=== PATIENT | male | born 1955 | race Two or more races ===

== ENCOUNTER 2024-05-20 08:48 | Outpatient (RCR) | payer MEDICARE, SELFPAY ==
--- NOTE | 2024-05-26 08:52 | CTCCONSULT_ITS ---
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 Patient has been treated with multiple drugs. Patient has progressed on back, Sunitinib. Regorafenib and Gleevac. Patient is on ripretinib and has been tolerating well. Patient have epistaxis which was intermittent. Patient recently had a scan and was advised that his disease is still. Last scan as per patient was about 1 year ago 1 year. Was not doing imaging as he has high co-pay. 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 Tobacco?Use:?Denies ETOH?Use:?Socially Drug?Note:?Denies Social?History?Note:?Lives?with? MEDICATIONS: 1. albuterol sulfate - 90 mcg/actuation As directed 2. celecoxib - 200 mg 1 Capsule Every 12 Hours 3. lisinopril - 5 mg 1 tab Daily 4. ripretinib - 50 mg 3 tab Daily Medications Last Reconciled by Amaris Le RN on 05/20/2024 ALLERGIES: No Known Drug Allergies REVIEW OF SYSTEMS: A complete 14-point review of systems was performed and is negative except as noted in interval history. PHYSICAL EXAMINATION: VITAL SIGNS: Temperature?98, B/P?155/89, Height?67?inches, Oxygen?Saturation?94% Weight?206?lbs PAIN: 4 - Moderate pain ECOG Performance Status: 0 - Asymptomatic and fully active GENERAL APPEARANCE: Appears well, in no apparent distress, appropriately interactive. HEENT: Normocephalic, no temporal wasting, normal conjunctiva, no scleral icterus, normal hearing, lips without lesions, neck normal range of motion. CARDIOVASCULAR: Not assessed. PULMONARY: Normal respiratory effort, no respiratory distress or use of accessory muscles, speaking in full sentences, no tachypnea. EXTREMITIES: No pedal edema or cyanosis. SKIN: Normal skin appearance. NEUROLOGIC: Alert and oriented x4. PSHYCHIATRIC: Appropriate affect, mood normal, behavior normal, intact thought and speech. LABORATORY DATA: I have personally reviewed and interpreted each of the patient?s relevant lab tests, abnormal findings are below: Date ECHO -60-65 percent ASSESSMENT/PLAN: GIST tumor Progressed on imatinib ,regorafinib and sutent Now on ripertinib and stable He needs staging imaging to see burden of disease and response to treatment High PDL1 PET CT SCAN CBC,CMP RETURN TO CLINIC: 4 WEEKS BILLING AND COMPLIANCE: I reviewed external records from providers outside my specialty as summarized above. I spent a total of 50 minutes on this patient?s care on the day of their visit excluding time spent related to any billed procedures. This time includes time spent with the patient as well as time spent documenting in the medical record, reviewing patients records and tests, obtaining history, placing orders, communicating with other healthcare professionals, counseling the patient, family or caregiver, and/or care coordination for the diagnoses above. Electronically Signed by: Salvatore Julien MD T: 8:49 AM CC: PCP: Ji Tolliver Referring: Ji Tolliver This document was completed utilizing speech recognition software. Grammatical errors, random word insertions, pronoun errors, and incomplete sentences are an occasional consequence of this system due to software limitations, ambient noise, and hardware issues. Any formal questions or concerns about the content, text or information contained within the body of this dictation should be directly addressed to the provider for clarification.
== END 2024-05-23 23:59 | disposition home or self-care (01) ==
LOC: SCTC 08:48
PROVIDERS: PCP Family Medicine; Referring Provider Family Medicine; Visit Provider Internal Medicine Hematology & Oncology
DX: C49.A0 Gastrointestinal stromal tumor, unspecified site (principal)
CPT/HCPCS: 99213; G0463

== ENCOUNTER → 2024-06-10 | Outpatient (CLI) | payer MEDICARE, SELFPAY ==
--- NOTE | 2024-06-10 10:15 | XR_ITS ---
EXAMINATION: PET/CT FUSION SKULL TO THIGH EXAM DATE AND TIME: June 10, 2024 at 1043 hours Compared to outside PET/CT scan October 17, 2023 INDICATIONS: Hypermetabolic liver lesions segment 7 5.0 x 3.8 cm, anterior pelvic Cystic solid mass with peripheral areas of solid FDG uptake, 8.9 x 7.3 cm, multiple soft tissue deposits in the left side of the abdomen left posterior abdomen 15 mm, anterior to the the descending colon 9 mm, diagnosis gastrointestinal cancer restaging post treatment CTDI:vol (mGy) 8.01 DLP: (mGycm) 831.63 PROCEDURE: 16.3 mCi FDG was administered intravenously To allow for distribution and uptake of radiotracer, the patient was allowed to rest quietly in a shielded room. Imaging was performed on an integrated 16-slice PET/CT scanner, with scanning from the skull base to the mid thigh. Serum blood glucose at the time of the injection was measured 100 mg/dL. CT scanning was performed without oral or intravenous contrast material. FINDINGS: Head and Neck: There is no tristen hypermetabolism in the neck. The visualized portions of the brain are normal in appearance on CT. Chest: There is no tristen hypermetabolism in the chest. There are no pulmonary nodules. Abdomen and Pelvis: Segment 7 weakly hypermetabolic liver lesion 5.3 x 3.9 cm Anterior pelvic cystic solid mass 8.3 x 7.3 cm Soft tissue mass posterior left pelvis 17 mm Soft tissue mass anterior to the descending colon 10 mm Moderate prostatomegaly Musculoskeletal: Marrow uptake is within normal range. IMPRESSION: Compared with outside PET CT scan examination October 17, 2023: Segment 7 hypermetabolic liver lesion 5.3 x 3.9 cm compared with 5.0 x 3.8 cm Anterior pelvic cystic solid mass 8.3 x 7.3 cm compared with 8.9 x 7.3 cm Soft tissue peritoneal posterior left pelvic mass 17 mm compared to 15 mm Soft tissue peritoneal left pelvic mass anterior to the descending colon 10 mm compared to 9 mm No new soft tissue tumor masses
== END | disposition home or self-care (01) ==
LOC: CDIM 09:10
PROVIDERS: PCP Family Medicine; Referring Provider Internal Medicine Hematology & Oncology; Visit Provider Internal Medicine Hematology & Oncology
DX: K76.9 Liver disease, unspecified (principal); R19.00 Intra-abdominal and pelvic swelling, mass and lump, unspecified site; C49.A0 Gastrointestinal stromal tumor, unspecified site
CPT/HCPCS: 78815; A9552

== ENCOUNTER 2024-07-24 13:44 | Outpatient (RCR) | payer MEDICARE, SELFPAY ==
--- NOTE | 2024-07-28 06:22 | CTCFLWUP_ITS ---
Patient: BUD JAUREGUI : 1955 Page 3 of 4 FOLLOW UP NOTE DATE OF SERVICE: 07/24/2024 NAME: BUD JAUREGUI ACCOUNT: [id number] : 1955 AGE: 68 INTERVAL HISTORY: Samuel Molina, a male with metastatic cancer, presented for follow-up of PET-CT scan results. His medical history includes liver lesion, pelvic cystic mass, and peritoneal masses. The May 2024 PET-CT showed overall stable disease compared to September 2019, with minimal changes in lesion measurements. The segment 7 liver lesion slightly increased to 5.3?3.9cm, while one peritoneal mass decreased from 15mm to 7mm. Treatment with ripretinib was continued with plans for follow-up PET scan in August 2024 and blood pressure monitoring due to medication effects. History of Present Illness Samuel Molina presents for follow-up of metastatic cancer, currently on ripretinib treatment. The patient recently underwent a PET-CT scan on June 10, 2024, which showed overall stable disease compared to the previous scan from September 2019. The patient's segment 7 hypermetabolic liver lesion has slightly increased in size, now measuring 5.3 by 3.9 cm compared to the previous 5 by 3.8 cm. The anterior pelvic cystic mass remains unchanged at 8.9 by 7.3 cm. There are two soft tissue peritoneal masses in the left pelvic area: one posterior mass has decreased from 15 mm to 7 mm, while another has slightly increased from 9 mm to 10 mm. Despite these minor changes, the overall assessment indicates stable disease. The patient is continuing treatment with ripretinib, which is known to potentially elevate blood pressure. There is no mention of any specific symptoms or side effects related to the medication or the patient's condition. 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 Patient has been treated with multiple drugs. Patient has progressed on back, Sunitinib. Regorafenib and Gleevac. Patient is on ripretinib and has been tolerating well. Patient have epistaxis which was intermittent. Patient recently had a scan and was advised that his disease is still. Last scan as per patient was about 1 year ago 1 year. Was not doing imaging as he has high co-pay. 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 Tobacco?Use:?Denies ETOH?Use:?Socially Drug?Note:?Denies Social?History?Note:?Lives?with? MEDICATIONS: 1. albuterol sulfate - 90 mcg/actuation As directed 2. ripretinib - 50 mg 3 tab Daily Medications Last Reconciled by Neyda Felder MA on 07/24/2024 ALLERGIES: No Known Drug Allergies REVIEW OF SYSTEMS: A complete 14-point review of systems was performed and is negative except as noted in interval history. PHYSICAL EXAMINATION: VITAL SIGNS: Temperature?99, B/P?180/88, Oxygen?Saturation?96% PAIN: 0 - No pain ECOG Performance Status: 0 - Asymptomatic and fully active GENERAL APPEARANCE: Appears well, in no apparent distress, appropriately interactive. HEENT: Normocephalic, no temporal wasting, normal conjunctiva, no scleral icterus, normal hearing, lips without lesions, neck normal range of motion. CARDIOVASCULAR: Not assessed. PULMONARY: Normal respiratory effort, no respiratory distress or use of accessory muscles, speaking in full sentences, no tachypnea. EXTREMITIES: No pedal edema or cyanosis. SKIN: Normal skin appearance. NEUROLOGIC: Alert and oriented x4. PSHYCHIATRIC: Appropriate affect, mood normal, behavior normal, intact thought and speech. LABORATORY DATA: I have personally reviewed and interpreted each of the patient?s relevant lab tests, abnormal findings are below: Date Laboratory, Imaging, and Diagnostic Test Results - PET-CT scan (06/10/2024): - Segment 7 hypermetabolic liver lesion: 5.3 x 3.9 cm - Anterior pelvic cystic mass: 8.9 x 7.3 cm - Soft tissue peritoneal posterior left pelvic mass: 7 mm - Soft tissue peritoneal left pelvic mass: 10 mm - Previous results: - PET-CT scan (September 2019): - Segment 7 hypermetabolic liver lesion: 5 x 3.8 cm - Soft tissue peritoneal posterior left pelvic mass: 15 mm - Soft tissue peritoneal left pelvic mass: 9 mm ASSESSMENT/PLAN: GIST tumor Progressed on imatinib ,regorafinib and sutent Now on ripertinib and stable Samuel Molina presents for follow-up of metastatic cancer with recent PET-CT scan showing stable disease on ripretinib therapy. Metastatic Cancer Assessment: PET-CT scan from 06-10-2024 shows stable disease compared to September 2019. Segment 7 hypermetabolic liver lesion measures 5.3 x 3.9 cm (previously 5 x 3.8 cm). Anterior pelvic cystic mass remains 8.9 x 7.3 cm. Soft tissue peritoneal posterior left pelvic mass decreased to 7 mm (previously 15 mm). Soft tissue peritoneal left pelvic mass slightly increased to 10 mm (previously 9 mm). Overall assessment indicates stable disease. Plan: - Continue current treatment plan with ripretinib - Schedule follow-up PET scan for August 2024 - Monitor and manage blood pressure due to potential elevation from ripretinib - Educate patient on importance of blood pressure control to prevent complications such as stroke, heart attack, and kidney failure ORDERS: Order # Description [id number] Comprehensive Metabolic Panel - 12 + CBC with Auto Diff + MD Follow Up 3 Months [id number] PET/CT of Skull to mid-thigh for Restaging RETURN TO CLINIC: BILLING AND COMPLIANCE: I reviewed external records from providers outside my specialty as summarized above. I spent a total of 50 minutes on this patient?s care on the day of their visit excluding time spent related to any billed procedures. This time includes time spent with the patient as well as time spent documenting in the medical record, reviewing patients records and tests, obtaining history, placing orders, communicating with other healthcare professionals, counseling the patient, family or caregiver, and/or care coordination for the diagnoses above. Electronically Signed by: Salvatore Julien MD T: 6:20 AM CC: PCP: Ji Tolliver Referring: Ji Tolliver This document was completed utilizing speech recognition software. Grammatical errors, random word insertions, pronoun errors, and incomplete sentences are an occasional consequence of this system due to software limitations, ambient noise, and hardware issues. Any formal questions or concerns about the content, text or information contained within the body of this dictation should be directly addressed to the provider for clarification.
== END 2024-08-23 23:59 | disposition home or self-care (01) ==
LOC: SCTC 13:44
PROVIDERS: PCP Family Medicine; Referring Provider Family Medicine; Visit Provider Internal Medicine Hematology & Oncology
DX: C49.A0 Gastrointestinal stromal tumor, unspecified site (principal); C78.7 Secondary malignant neoplasm of liver and intrahepatic bile duct; C79.89 Secondary malignant neoplasm of other specified sites
CPT/HCPCS: 99212; G0463

== ENCOUNTER 2024-09-18 08:17 | Outpatient (AMB) | payer MEDICARE, SELFPAY ==
[2024-09-18 08:38] VITALS: BP 167/89; PULSE 79; RESP 17; TEMP 36.9; O2SAT 95; BMI 29.7
--- NOTE | 2024-09-18 08:38 | ORTHONT_ITS ---
Vital signs 09/18/24 08:38 Height 1.73 m Height Method Stated Weight 88.904 kg Weight Measurement Method Standing Scale BMI 29.7 BP 167/89 H Blood Pressure Source Automatic Cuff Blood Pressure Location Left Upper Arm Position Sitting Respiration 17 Pulse 79 Pulse Source Monitor Temp 98.4 F Temp Source Temporal Artery Scan Pulse Oximetry (%) 95 Oxygen Delivery Method Room Air Med/Allergies Allergies & Medications Allergies NKA* Allergy (Uncoded 09/18/24 08:39) Medication Reconciliation albuterol sulfate 2.5 mg/0.5 mL solution for nebulization 10 mg inhalation Q4H PRN 09/18/24 [History Confirmed 09/18/24] losartan 25 mg tablet 25 mg PO QDAY 09/18/24 [History Confirmed 09/18/24] ripretinib 50 mg tablet (Qinlock) 150 mg PO QDAY 09/18/24 [History Confirmed 09/18/24] Exam Exam Patient is in no acute distress and is cooperative with the examination today. Breathing is nonlabored. In no respiratory distress. Bilateral extremities were evaluated and demonstrates sensation intact to light touch. Palpable pedal pulses are present. No significant edema is present. Bilateral hips were examined. The patient has no pain with log roll of the hips. Internal rotation to 30 degrees and external rotation to 30 degrees is painless. Negative FADIR. The left knee was examined. The left knee is in varus alignment. Range of motion from 0-115 degrees. Knee is stable to varus and valgus as well as AP translation with <5mm. Patient has a negative McMurrays. There is no pain with patellofemoral compression and no crepitus noted. The knee is tender to palpation medially. The right knee was also examined. The right knee is in varus alignment. Range of motion from 0-120 degrees. Knee is stable to varus and valgus as well as AP translation with <5mm. Patient has a negative McMurrays. There is no pain with patellofemoral compression and no crepitus noted. The knee is tender to palpation medially. Assessment and Plan Problem List (1) Degenerative arthritis of knee, bilateral: Status: Acute Plan Patient is a pleasant 68-year-old male with bilateral knee pain and bilateral knee arthritis. He has an MRI which demonstrates there is a meniscal tear. I would like to get weightbearing x-rays to better evaluate this. Will likely continue with conservative treatment options as he is cancer. We will likely start with bilateral cortisone injections at the next visit with us. Advanced Care Planning Discussion Advance care planning discussed with:: patient Office Procedures GNS Level of Care Nursing/Assessment Patient Status: Initial/New Patient Nursing Assessment/Reassesment: Medication Reconciliation, Update PMH in EMR and Vital Signs Coordination of Care: Complex Care and Chronic Disease 1-5, Education Complex Pt/Fam, Consent,records obtained, informed consent, 1 Ins Authorization, Lab and Imaging orders and Results/Orders obtained New Patient Charge New Patient Point Assignment: 1114 New Patient Point Charge: HL7 INTERFACE DEVELOPER Level 3 ([id number]) MA Intake Visit Data Collection New Patient or Established: Established Patient (seen at [facility] within 3 years) Reason for Visit:: RIGHT KNEE OSTEOARTHITIS Seen by Clinical Staff ONLY (RN/MA): No Offset Printing Operator Required: No PCP or OBGYN visit in last 3 months: Yes Hx Now: No Do You Feel Safe at Home: Yes Authorities Contacted: N/A Questionairres Past Medical History Past Medical History Have you ever been diagnosed with any of the following: Other Problems Blood Transfusions: Yes Subjective Visit Visit for: new patient and knee (RIGHT KNEE) Immunization / Flu Flu Vaccine in the Last 12 Months: No Flu Vaccine Exclusion Criteria: Refused by Patient History of Present Illness Chief complaint: Bilateral knee pain Patient is a pleasant 68-year-old male with bilateral knee pain of equal severity of both sides. He reports that he has a lot of pain at the end of the day. Still very active. Has not had any injections. 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 He thus cannot take any anti- inflammatory Personal History Red flag PMH: none Pain Pain level (0-10): 8 Pain duration: 3 MONTHS Pain location: anterior Pain quality: aching Pain timing: night and increases with activity Associated signs & symptoms: numbness Ambulatory data Ambulatory device: none Walking distance (minutes): 20 Treatments Number of previous injections: 0 Number of Physical Therapy sessions: 0 Improvement with NSAIDS: n/a Review of Systems Review of Systems: All systems negative unless otherwise noted in HPI.
--- NOTE | 2024-09-18 08:44 | XR_ITS ---
Examination: Bilateral knees 2 views Right lateral knee left lateral knee 2 views Bilateral axial knees single view TECHNIQUE: Bilateral AP knees standing single view Bilateral PA knees standing single view flexion Standing right lateral knee left lateral knee 2 views Bilateral axial knees single view total 5 views Date and time: September 18, 2024, 0853 hours. INDICATIONS: Bilateral knee pain one year. FINDINGS: Moderate osteopenia Moderate narrowing medial joint spaces bilaterally Mild to moderate bilateral narrowing patellofemoral joints No fractures IMPRESSION: Moderate narrowing medial joint spaces bilaterally Mild to moderate narrowing patellofemoral joints
== END 2024-09-18 08:46 | disposition home or self-care (01) ==
PROVIDERS: PCP Family Medicine; Referring Provider Family Medicine; Supervising Provider Orthopaedic Surgery Adult Reconstructive Orthopaedic Surgery; Visit Provider Orthopaedic Surgery Adult Reconstructive Orthopaedic Surgery
DX: M17.0 Bilateral primary osteoarthritis of knee (principal); M25.562 Pain in left knee; M25.561 Pain in right knee; C17.9 Malignant neoplasm of small intestine, unspecified
CPT/HCPCS: 73564; 99203; G0463

== ENCOUNTER 2024-10-17 08:57 | Outpatient (AMB) | payer MEDICARE, SELFPAY ==
--- NOTE | 2024-10-17 09:11 | ORTHONT_ITS ---
Vital signs 10/17/24 09:14 Height 1.73 m Height Method Stated Weight 89.953 kg Weight Measurement Method Standing Scale BMI 30.0 BP 152/93 H Blood Pressure Source Automatic Cuff Blood Pressure Location Left Upper Arm Position Sitting Respiration 18 Pulse 102 H Pulse Source Monitor Temp 96.9 F Temp Source Temporal Artery Scan Pulse Oximetry (%) 95 Oxygen Delivery Method Room Air Med/Allergies Allergies & Medications Allergies NKA* Allergy (Uncoded 10/17/24 09:15) Medication Reconciliation albuterol sulfate 2.5 mg/0.5 mL solution for nebulization 10 mg inhalation Q4H PRN 09/18/24 [History Confirmed 10/17/24] losartan 25 mg tablet 25 mg PO QDAY 09/18/24 [History Confirmed 10/17/24] ripretinib 50 mg tablet (Qinlock) 150 mg PO QDAY 09/18/24 [History Confirmed 10/17/24] Exam Exam Patient is in no acute distress and is cooperative with the examination today. Breathing is nonlabored. In no respiratory distress. Bilateral extremities were evaluated and demonstrates sensation intact to light touch. Palpable pedal pulses are present. No significant edema is present. Bilateral hips were examined. The patient has no pain with log roll of the hips. Internal rotation to 30 degrees and external rotation to 30 degrees is painless. Negative FADIR. The left knee was examined. The left knee is in varus alignment. Range of motion from 0-115 degrees. Knee is stable to varus and valgus as well as AP translation with <5mm. Patient has a negative McMurrays. There is no pain with patellofemoral compression and no crepitus noted. The knee is tender to palpation medially. The right knee was also examined. The right knee is in varus alignment. Range of motion from 0-120 degrees. Knee is stable to varus and valgus as well as AP translation with <5mm. Patient has a negative McMurrays. There is no pain with patellofemoral compression and no crepitus noted. The knee is tender to palpation medially. Bilateral knee xrays demonstrate mild arthritis of his knees bilaterally. Assessment and Plan Problem List (1) Degenerative arthritis of knee, bilateral: Status: Acute Plan Patient is a pleasant 68-year-old male with bilateral knee pain and bilateral knee arthritis. He has an MRI which demonstrates there is a meniscal tear. He reports that he is doing well and would like to continue with conservative management. We will see him on an as needed basis Advanced Care Planning Discussion Advance care planning discussed with:: patient Office Procedures GNS Level of Care Nursing/Assessment Patient Status: Established Patient Nursing Assessment/Reassesment: Medication Reconciliation, Update PMH in EMR and Vital Signs Coordination of Care: Complex Care and Chronic Disease 1-5, Education Complex Pt/Fam, Consent,records obtained, informed consent, Results/Orders obtained and Staff clarify orders Established Patient Charge Established Patient Point Assignment: 95 Established Patient Point Charge: EP Level 3 (80-115) MA Intake Visit Data Collection New Patient or Established: Established Patient (seen at [facility] within 3 years) Reason for Visit:: RIGHT KNEE OSTEOARTHITIS Seen by Clinical Staff ONLY (RN/MA): No Seamless Tube Roller Required: No PCP or OBGYN visit in last 3 months: Yes Hx Now: No Do You Feel Safe at Home: Yes Authorities Contacted: N/A Questionairres Past Medical History Past Medical History Have you ever been diagnosed with any of the following: Other Problems Blood Transfusions: Yes Subjective Visit Visit for: new patient, follow up visit, knee (RIGHT KNEE) and x-rays Immunization / Flu Flu Vaccine in the Last 12 Months: No Flu Vaccine Exclusion Criteria: Refused by Patient History of Present Illness Chief complaint: Bilateral knee pain Patient is a pleasant 68-year-old male with bilateral knee pain of equal severity of both sides. He reports that he has a lot of pain at the end of the day. Still very active. Has not had any injections. 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 He thus cannot take any anti- inflammatory Personal History Red flag PMH: none Pain Pain level (0-10): 8 Pain duration: 3 MONTHS Pain location: anterior Pain quality: aching Pain timing: night and increases with activity Associated signs & symptoms: numbness Ambulatory data Ambulatory device: none Walking distance (minutes): 20 Treatments Number of previous injections: 0 Number of Physical Therapy sessions: 0 Improvement with NSAIDS: n/a Review of Systems Review of Systems: All systems negative unless otherwise noted in HPI.
[2024-10-17 09:14] VITALS: BP 152/93; PULSE 102; RESP 18; TEMP 36.1; O2SAT 95
== END 2024-10-17 09:18 | disposition home or self-care (01) ==
LOC: HODSRG 08:57
PROVIDERS: PCP Family Medicine; Referring Provider Family Medicine; Supervising Provider Orthopaedic Surgery Adult Reconstructive Orthopaedic Surgery; Visit Provider Orthopaedic Surgery Adult Reconstructive Orthopaedic Surgery
DX: M17.0 Bilateral primary osteoarthritis of knee (principal); M25.562 Pain in left knee; M25.561 Pain in right knee; C26.0 Malignant neoplasm of intestinal tract, part unspecified; Z92.21 Personal history of antineoplastic chemotherapy
CPT/HCPCS: 99213; G0463

== ENCOUNTER → 2024-11-18 | Outpatient (CLI) | payer MEDICARE, SELFPAY ==
--- NOTE | 2024-11-18 11:00 | XR_ITS ---
EXAMINATION: PET/CT FUSION SKULL TO THIGH EXAM DATE AND TIME: November 18, 2024, 12:31 PM, comparison PET/CT scan June 10, 2024 Indications: Diagnosis small intestine cancer, restaging post treatment CTDI:vol (mGy) 7.06 DLP: (mGycm) 732.99 PROCEDURE: 14.9 mCi FDG was administered intravenously To allow for distribution and uptake of radiotracer, the patient was allowed to rest quietly in a shielded room. Imaging was performed on an integrated 16-slice PET/CT scanner, with scanning from the skull base to the mid thigh. FINDINGS: Head and Neck: There is no tristen hypermetabolism in the neck. The visualized portions of the brain are normal in appearance on CT. Chest: There is no tristen hypermetabolism in the chest. There are no pulmonary nodules. Abdomen and Pelvis: Hypermetabolic medial upper right lobe liver lesion 7.8 x 5.8 cm. compared to 5.3 x 3.9 cm, PET/CT scan June 10, 2024 The ringlike hypermetabolic cystic solid lesion in the anterior pelvis currently measures 9.0 x 7.5 cm compared with 8.3 x 7.3 cm June 10 2024 Interval weakly hypermetabolic peritoneal nodule in the left lower abdomen, axial image 201, measuring 14 mm Musculoskeletal: Marrow uptake is within normal range. IMPRESSION: Compared with PET/CT scan June 10, 2024: Enlarging hypermetabolic right lobe liver lesion, 7.8 x 5.8 cm compared to 5.3 x 3.9 cm Weakly hypermetabolic ringlike cystic solid lesion in the anterior pelvis, 9.0 x 7.5 cm compared with 8.3 x 7.3 cm Interval likely metastatic hypermetabolic peritoneal soft tissue nodule in the left lower abdomen, 14 mm
== END | disposition home or self-care (01) ==
PROVIDERS: PCP Internal Medicine Hematology & Oncology; Referring Provider Internal Medicine Hematology & Oncology; Visit Provider Internal Medicine Hematology & Oncology
DX: K76.9 Liver disease, unspecified (principal); C85.81 Other specified types of non-Hodgkin lymphoma, lymph nodes of head, face, and neck; C49.A0 Gastrointestinal stromal tumor, unspecified site
CPT/HCPCS: 78815; A9552

== ENCOUNTER 2024-11-27 09:17 | Outpatient (RCR) | payer MEDICARE, SELFPAY ==
--- NOTE | 2024-12-01 00:16 | CTCFLWUP_ITS ---
Patient: BUD BAKER : 1955 Page 3 of 4 FOLLOW UP NOTE DATE OF SERVICE: 11/27/2024 NAME: BUD BAKER ACCOUNT: [id number] : 1955 AGE: 68 INTERVAL HISTORY: Samuel Molina, a male with metastatic cancer, presented for follow-up of PET-CT scan results. His medical history includes liver lesion, pelvic cystic mass, and peritoneal masses. The May 2024 PET-CT showed overall stable disease compared to September 2019, with minimal changes in lesion measurements. The segment 7 liver lesion slightly increased to 5.3?3.9cm, while one peritoneal mass decreased from 15mm to 7mm. Treatment with ripretinib was continued with plans for follow-up PET scan in August 2024 .11/18/2024 showed progression of cancer . patient changed to higher dose of ripertinib .will switch to nilotinob if patient do not respond to 300 mg ripertinib . will send to dr shaylee castle for malignant hematology opinion . History of Present Illness Samuel Molina presents for follow-up of metastatic cancer, currently on ripretinib treatment. The patient recently underwent a PET-CT scan on June 10, 2024, which showed overall stable disease compared to the previous scan from September 2019. The patient's segment 7 hypermetabolic liver lesion has slightly increased in size, now measuring 5.3 by 3.9 cm compared to the previous 5 by 3.8 cm. The anterior pelvic cystic mass remains unchanged at 8.9 by 7.3 cm. There are two soft tissue peritoneal masses in the left pelvic area: one posterior mass has decreased from 15 mm to 7 mm, while another has slightly increased from 9 mm to 10 mm. Despite these minor changes, the overall assessment indicates stable disease. The patient is continuing treatment with ripretinib, which is known to potentially elevate blood pressure. There is no mention of any specific symptoms or side effects related to the medication or Mr. Baker's condition. 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 Patient has been treated with multiple drugs. Patient has progressed on back, Sunitinib. Regorafenib and Gleevac. Patient is on ripretinib and has been tolerating well. Patient have epistaxis which was intermittent. Patient recently had a scan and was advised that his disease is still. Last scan as per patient was about 1 year ago 1 year. Was not doing imaging as he has high co-pay. 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 Tobacco?Use:?Denies ETOH?Use:?Socially Drug?Note:?Denies Social?History?Note:?Lives?with? MEDICATIONS: 1. albuterol sulfate - 90 mcg/actuation As directed 2. ondansetron - 8 mg 1 tab Every 8 Hours 3. ripretinib - 50 mg 3 tab Twice a Day Medications Last Reconciled by Neyda Felder MA on 11/27/2024 ALLERGIES: No Known Drug Allergies REVIEW OF SYSTEMS: A complete 14-point review of systems was performed and is negative except as noted in interval history. PHYSICAL EXAMINATION: VITAL SIGNS: Temperature?98, B/P?165/98, Oxygen?Saturation?95% Weight?202?lbs PAIN: 0 - No pain ECOG Performance Status: 0 - Asymptomatic and fully active GENERAL APPEARANCE: Appears well, in no apparent distress, appropriately interactive. HEENT: Normocephalic, no temporal wasting, normal conjunctiva, no scleral icterus, normal hearing, lips without lesions, neck normal range of motion. CARDIOVASCULAR: Not assessed. PULMONARY: Normal respiratory effort, no respiratory distress or use of accessory muscles, speaking in full sentences, no tachypnea. EXTREMITIES: No pedal edema or cyanosis. SKIN: Normal skin appearance. NEUROLOGIC: Alert and oriented x4. PSHYCHIATRIC: Appropriate affect, mood normal, behavior normal, intact thought and speech. LABORATORY DATA: I have personally reviewed and interpreted each of the patient?s relevant lab tests, abnormal findings are below: Date ASSESSMENT/PLAN: GIST tumor Progressed on imatinib ,regorafinib and sutent Patient was on ripretinib [address] scan shows progression of disease Will change treatment to ripretinib 300 mg-150 mg twice daily Will send for second opinion and management with Dr. Monge at [facility] If patient progresses we will change to Nilotinib ORDERS: Order # Description [id number] Cardiology RETURN TO CLINIC: I reviewed the diagnosis, prognosis, and recommended treatment/procedure options with the patient (and/or their legal community health representative), including the potential benefits, risks, side effects and alternative therapies. We also discussed the option of no treatment and the possibility of clinical trial participation, if applicable. All questions were addressed, and they demonstrated understanding. They provided informed consent to proceed with the proposed plan of care. BILLING AND COMPLIANCE: I reviewed external records from providers outside my specialty as summarized above. I spent a total of 50 minutes on this patient?s care on the day of their visit excluding time spent related to any billed procedures. This time includes time spent with the patient as well as time spent documenting in the medical record, reviewing patients records and tests, obtaining history, placing orders, communicating with other healthcare professionals, counseling the patient, family or caregiver, and/or care coordination for the diagnoses above. Electronically Signed by: Salvatore Julien MD T: 12:14 AM CC: PCP: Ji Tolliver Referring: Ji Tolliver This document was completed utilizing speech recognition software. Grammatical errors, random word insertions, pronoun errors, and incomplete sentences are an occasional consequence of this system due to software limitations, ambient noise, and hardware issues. Any formal questions or concerns about the content, text or information contained within the body of this dictation should be directly addressed to the provider for clarification.
== END 2024-12-23 23:59 | disposition home or self-care (01) ==
LOC: SCTC 09:17
PROVIDERS: PCP Family Medicine; Referring Provider Family Medicine; Visit Provider Internal Medicine Hematology & Oncology
DX: C49.A0 Gastrointestinal stromal tumor, unspecified site (principal); K76.89 Other specified diseases of liver; R19.00 Intra-abdominal and pelvic swelling, mass and lump, unspecified site; K66.8 Other specified disorders of peritoneum
CPT/HCPCS: 99212; G0463

== ENCOUNTER → 2024-12-01 | Outpatient (CLI) | payer MEDICARE, SELFPAY ==
--- NOTE | 2024-12-01 16:30 | EKG_ITS ---
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
== END | disposition home or self-care (01) ==
PROVIDERS: PCP Family Medicine; Referring Provider Internal Medicine Hematology & Oncology; Visit Provider Internal Medicine Hematology & Oncology
DX: C49.A0 Gastrointestinal stromal tumor, unspecified site (principal)
CPT/HCPCS: 93005

== ENCOUNTER → 2025-01-07 | Outpatient (CLI) | payer MEDICARE, SELFPAY ==
--- NOTE | 2025-01-07 09:30 | ECHO_ITS ---
Transthoracic Echo Report Ht (in): 69 Wt (lb): 196 Exam Location: Echo Lab Status: Preadmit System Support Analyst: Angela Marie Indications: Procedure Performed: BP: 145 / 114 HR: MEASUREMENTS (Male / Female) Normal Values 2D ECHO LV Diastolic Diameter PLAX 3.8 cm 4.2 - 5.9 / 3.9 - 5.3 cm LV Systolic Diameter PLAX 2.6 cm IVS Diastolic Thickness 0.9 cm 0.6 - 1.0 / 0.6 - 0.9 cm LVPW Diastolic Thickness 1.5 cm 0.6 - 1.0 / 0.6 - 0.9 cm LV Relative Wall Thickness 0.6 LVOT Diameter 2.1 cm LA Volume Index 26.9 cm?/m? 16 - 28 cm?/m? Ascending Aorta Diameter 2.9 cm DOPPLER AV Peak Velocity 115.0 cm/s AV Peak Gradient 5.3 mmHg AV Mean Gradient 3.0 mmHg AV Velocity Time Integral 23.3 cm LVOT Peak Velocity 101.0 cm/s LVOT Peak Gradient 4.1 mmHg LVOT Velocity Time Integral 19.5 cm AV Area Cont Eq vti 2.9 cm? AV Area Cont Eq pk 3.0 cm? MV Area PHT 5.4 cm? Mitral E Point Velocity 45.6 cm/s Mitral A Point Velocity 82.5 cm/s Mitral E to A Ratio 0.6 LV E' Lateral Velocity 5.8 cm/s Mitral E to LV E' Lateral Ratio 7.9 LV E' Septal Velocity 5.8 cm/s Mitral E to LV E' Septal Ratio 7.9 TR Peak Velocity 225.5 cm/s TR Peak Gradient 20.3 mmHg PV Peak Velocity 96.4 cm/s PV Peak Gradient 3.7 mmHg FINDINGS Left Ventricle Normal left ventricular size, wall thickness, systolic function with no obvious regional wall motion abnormalities. There is grade I diastolic dysfunction of the left ventricle (impaired relaxation pattern). . The ejection fraction is visually estimated at 55-60%. Right Ventricle The right ventricle is normal in size and systolic function. RVSP 31mmHg with RAP 3. Mild HTN Left Atrium The left atrium is normal by two-dimensional, color flow and Doppler imaging with no structural abnormalities, no thrombus formation present. Right Atrium The right atrium is normal by two-dimensional imaging, color flow and Doppler imaging with no structural abnormalities, no thrombus formation present. Atrial Septum The interatrial septum appears normal with no evidence of a shunt. Aorta The aorta is normal by two-dimensional, color flow and Doppler interrogation. Mitral Valve The mitral valve is normal by two-dimensional, color flow and Doppler interrogation. Trace mitral regurgitation. Aortic Valve The aortic valve is trileaflet and normal by two-dimensional, color flow and Doppler interrogation. There is no significant aortic valve regurgitation. Tricuspid Valve The tricuspid valve is normal by two-dimensional, color flow and Doppler interrogation. There is trace tricuspid valve regurgitation. Pulmonic Valve The pulmonic valve is not well visualized. Mild pulmonic valve regurgitation. Vessels The pulmonary artery appears normal. The inferior vena cava pulmonary and hepatic veins appear normal. Pericardium The pericardium is normal by two-dimensional imaging. There is no significant pericardial effusion. CONCLUSIONS Indication: Gastrointestinal stromal tumor, unspecified site Normal left ventricular size and function. Approximate ejection fraction is 55-60%. Normal right ventricular size and function. RVSP 31mmHg with RAP 3. Mild HTN Trace mitral and trace tricuspid regurgitation noted. Mild PI. Sharlene Key (Electronically Signed) Final Date: 08 January 2025 11:40
== END | disposition home or self-care (01) ==
LOC: SDIM 09:08
PROVIDERS: PCP Family Medicine; Referring Provider Internal Medicine Hematology & Oncology; Visit Provider Internal Medicine Hematology & Oncology
DX: I08.1 Rheumatic disorders of both mitral and tricuspid valves (principal); I10 Essential (primary) hypertension; C49.A0 Gastrointestinal stromal tumor, unspecified site
CPT/HCPCS: 93306

== ENCOUNTER 2025-01-13 13:44 | Outpatient (RCR) | payer MEDICARE, SELFPAY | END 2025-01-23 23:59 | disposition home or self-care (01) | LOC: SCTC 13:44 | PROVIDERS: PCP Family Medicine; Referring Provider Family Medicine; Visit Provider Internal Medicine Hematology & Oncology | DX: C49.A0 Gastrointestinal stromal tumor, unspecified site (principal) | CPT/HCPCS: 99212; G0463 ==

== ENCOUNTER 2025-03-09 15:27 | Outpatient (RCR) | payer MEDICARE, SELFPAY ==
--- NOTE | 2025-03-09 16:21 | CTCFLWUP_ITS ---
Patient: BUD BAKER : 1955 Page 3 of 5 FOLLOW UP NOTE DATE OF SERVICE: 03/09/2025 NAME: BUD BAKER ACCOUNT: [id number] : 1955 AGE: 69 INTERVAL HISTORY: Samuel Molina, a male with metastatic cancer, presented for follow-up of PET-CT scan results. His medical history includes liver lesion, pelvic cystic mass, and peritoneal masses. The May 2024 PET-CT showed overall stable disease compared to September 2019, with minimal changes in lesion measurements. The segment 7 liver lesion slightly increased to 5.3?3.9cm, while one peritoneal mass decreased from 15mm to 7mm. Treatment with ripretinib was continued with plans for follow-up PET scan in August 2024 .11/18/2024 showed progression of cancer . patient changed to higher dose of ripertinib patient doing well. Patient had his PET CT scan and is scheduled to see surgeon on Sunday. Will follow-up on that. Will scan to evaluate response to therapy. History of Present Illness Samuel Molina presents for follow-up of metastatic cancer, currently on ripretinib treatment. The patient recently underwent a PET-CT scan on June 10, 2024, which showed overall stable disease compared to the previous scan from September 2019. The patient's segment 7 hypermetabolic liver lesion has slightly increased in size, now measuring 5.3 by 3.9 cm compared to the previous 5 by 3.8 cm. The anterior pelvic cystic mass remains unchanged at 8.9 by 7.3 cm. There are two soft tissue peritoneal masses in the left pelvic area: one posterior mass has decreased from 15 mm to 7 mm, while another has slightly increased from 9 mm to 10 mm. Despite these minor changes, the overall assessment indicates stable disease. The patient is continuing treatment with ripretinib, which is known to potentially elevate blood pressure. There is no mention of any specific symptoms or side effects related to the medication or Mr. Baker's condition. 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 Patient has been treated with multiple drugs. Patient has progressed on back, Sunitinib. Regorafenib and Gleevac. Patient is on ripretinib and has been tolerating well. Patient have epistaxis which was intermittent. Patient recently had a scan and was advised that his disease is still. Last scan as per patient was about 1 year ago 1 year. Was not doing imaging as he has high co-pay. 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 Tobacco?Use:?Denies ETOH?Use:?Socially Drug?Note:?Denies Social?History?Note:?Lives?with? MEDICATIONS: 1. albuterol sulfate - 90 mcg/actuation As directed 2. ondansetron - 8 mg 1 tab Every 8 Hours 3. ripretinib - 50 mg 3 tab Twice a Day Medications Last Reconciled by Neyda London MD on 03/09/2025 ALLERGIES: No Known Drug Allergies REVIEW OF SYSTEMS: A complete 14-point review of systems was performed and is negative except as noted in interval history. PHYSICAL EXAMINATION: VITAL SIGNS: Temperature?97.4, B/P?170/91, Oxygen?Saturation?94% Weight?189?lbs PAIN: 0 - No pain GENERAL APPEARANCE: Appears well, in no apparent distress, appropriately interactive. HEENT: Normocephalic, no temporal wasting, normal conjunctiva, no scleral icterus, normal hearing, lips without lesions, neck normal range of motion. CARDIOVASCULAR: Not assessed. PULMONARY: Normal respiratory effort, no respiratory distress or use of accessory muscles, speaking in full sentences, no tachypnea. EXTREMITIES: No pedal edema or cyanosis. SKIN: Normal skin appearance. NEUROLOGIC: Alert and oriented x4. PSHYCHIATRIC: Appropriate affect, mood normal, behavior normal, intact thought and speech. LABORATORY DATA: I have personally reviewed and interpreted each of the patient?s relevant lab tests, abnormal findings are below: Date ASSESSMENT/PLAN: GIST tumor Progressed on imatinib ,regorafinib and sutent Patient was on ripretinib [address] scan shows progression of disease Treatment was changed to ripretinib 300 mg-150 mg twice daily PET CT scan was completed on Sunday but no report available. Advised staff to get the report VERENICE Patient will need change of therapy. Patient is recommended to be started on combination imatinib and ziftomenib based on NCT [id number] trial Patient will also be considered for liver resection based on PET CT scan results RTC in 4 weeks with the results as well as progress note from upcoming appointment [facility] with Dr. Bullock ORDERS: Order # Description [id number] Cardiology ORDERS: Order # Description [id number] Comprehensive Metabolic Panel - 12 + CBC with Auto Diff + MD Follow Up 4 Week RETURN TO CLINIC: I reviewed the diagnosis, prognosis, and recommended treatment/procedure options with the patient (and/or their legal wholesale representative), including the potential benefits, risks, side effects and alternative therapies. We also discussed the option of no treatment and the possibility of clinical trial participation, if applicable. All questions were addressed, and they demonstrated understanding. They provided informed consent to proceed with the proposed plan of care. BILLING AND COMPLIANCE: I reviewed external records from providers outside my specialty as summarized above. I spent a total of 50 minutes on this patient?s care on the day of their visit excluding time spent related to any billed procedures. This time includes time spent with the patient as well as time spent documenting in the medical record, reviewing patients records and tests, obtaining history, placing orders, communicating with other healthcare professionals, counseling the patient, family or caregiver, and/or care coordination for the diagnoses above. Electronically Signed by: Salvatore Julien MD T: 4:19 PM CC: PCP: Ji Tolliver Referring: Ji Tolliver This document was completed utilizing speech recognition software. Grammatical errors, random word insertions, pronoun errors, and incomplete sentences are an occasional consequence of this system due to software limitations, ambient noise, and hardware issues. Any formal questions or concerns about the content, text or information contained within the body of this dictation should be directly addressed to the provider for clarification.
== END 2025-03-25 23:59 | disposition home or self-care (01) ==
LOC: SCTC 15:27
PROVIDERS: PCP Family Medicine; Referring Provider Family Medicine; Visit Provider Internal Medicine Hematology & Oncology
DX: C49.A0 Gastrointestinal stromal tumor, unspecified site (principal)
CPT/HCPCS: 99212; G0463